=== PATIENT | male | born 1975 | race African-American/Black ===

== ENCOUNTER 2019-12-28 19:13 | Emergency (ER) | payer OTHER, SELFPAY ==
--- NOTE | ~2019-12-28 | XR_ITS ---
XR hand RT min 3V 12/28/2019 19:31 INDICATION: Right hand pain PROCEDURE: 3 views right hand COMPARISON: No prior studies for comparison. FINDINGS: Fracture, dislocation or subluxation is not identified. The soft tissues appear within norm al limits. No foreign bodies are identified. IMPRESSION: 1: NO ACUTE BONE OR JOINT ABNORMALITY IDENTIFIED. Reviewed, dictated and finalized at location A.
[2019-12-28 19:18] VITALS: BP 122/65; PULSE 71; RESP 18; TEMP 36.8; O2SAT 98
--- NOTE | 2019-12-28 20:11 | ED.GENADULT ---
HPI - General Adult General Chief complaint: Extremity Injury, Upper Stated complaint: rt hand inury Time Seen by Provider: 12/28/19 19:19 Source: patient Mode of arrival: ambulatory Limitations: no limitations History of Present Illness HPI narrative: Patient is a 44-year-old male who presents to emergency department for evaluation of right hand pain that began after punching an object 2 weeks ago noting aching pain over the third MCP joint area slight swelling worse with activity and movement denies numbness tingling radicular symptoms or other injuries Related Data Allergies Allergy/AdvReac Type Severity Reaction Status Date / Time No Known Allergies Allergy Unverified 06/06/19 21:44 Review of Systems Review of Systems: All systems reviewed & are unremarkable except as noted in HPI and below PMFSH Social History Social History Gender identity (if verbalized by the patient): Male Exam Narrative: Exam Narrative: GENERAL: Well-appearing, well-nourished, and in no acute distress. HEAD: Normocephalic, atraumatic. EYES: PERRLA and EOMI. ENT: Nares clear, no rhinorrhea or epistaxis. Mucous membranes moist. EXTREMITIES: Normal range of motion. No edema. Tenderness over the dorsal surface of the right hand no deformities noted SKIN: Warm, dry, no rash. NEURO: No focal deficits. Alert and oriented x3. Neurovascularly intact. Capillary refill less than 2 seconds PSYCH: Normal mood and affect. Course Course Emergency Course: Patient in the room in no distress aware of case findings treatment plan and diagnosis agreeing to follow-up as directed Vital Signs Vital signs: Vital Signs Temperature 98.3 F 12/28/19 19:18 Pulse Rate 71 12/28/19 19:18 Respiratory Rate 18 12/28/19 19:18 Blood Pressure 122/65 12/28/19 19:18 Pulse Oximetry 98 12/28/19 19:18 Temperature 98.3 F 12/28/19 19:18 Pulse Rate 71 12/28/19 19:18 Respiratory Rate 18 12/28/19 19:18 Blood Pressure 122/65 12/28/19 19:18 Pulse Oximetry 98 12/28/19 19:18 Medical Decision Making MDM Narrative Medical decision making narrative: Patients injury or pain is consistent with musculoskeletal etiology. No signs of neurological or vascular compromise on exam. Compartments and tisues are soft without signs of compartment syndrome. Pain is felt appropriate for further evaluation on an outpatient basis. Vital Signs Vital Signs: Vital Signs Temperature 98.3 F 12/28/19 19:18 Pulse Rate 71 12/28/19 19:18 Respiratory Rate 18 12/28/19 19:18 Blood Pressure 122/65 12/28/19 19:18 Pulse Oximetry 98 12/28/19 19:18 Temperature 98.3 F 12/28/19 19:18 Pulse Rate 71 12/28/19 19:18 Respiratory Rate 18 12/28/19 19:18 Blood Pressure 122/65 12/28/19 19:18 Pulse Oximetry 98 12/28/19 19:18 Imaging Data Radiologist's impression: ITS Impressions Hand X-Ray 12/28/19 19:34 IMPRESSION: 1: NO ACUTE BONE OR JOINT ABNORMALITY IDENTIFIED. Discharge Plan Discharge Clinical Impression: Hand pain, right Patient Disposition: Home, Self-Care Condition: Stable Instructions: Antibiotic Form, Arthralgia (ED) Additional Instructions: Follow-up with primary care in the next 7 days Return if symptoms worsen or concerns Follow-up/Referrals: UNKNOWN,DOCTOR [Primary Care Provider] -
[2019-12-28 20:33] VITALS: BP 135/97; PULSE 80; RESP 17; TEMP 36.2; O2SAT 100
== END 2019-12-28 20:35 | disposition home or self-care (01) ==
PROVIDERS: Emergency Provider Emergency Medicine
DX: M79.641 Pain in right hand (principal); W22.8XXA Striking against or struck by other objects, initial encounter
CPT/HCPCS: 73130; 99283

== ENCOUNTER 2020-08-07 16:33 | Inpatient (IN) | payer MEDICAID, SELFPAY ==
[2020-08-07] VITALS (20 sets, daily range): BP systolic 70–123; BP diastolic 40–76; PULSE 74–110; RESP 13–18; TEMP 36.3–38.1; O2SAT 95–100; BMI 22.2
--- NOTE | ~2020-08-07 | CT_ITS ---
EXAMINATION: CT abdomen pelvis wo con DATE: 08/07/2020 18:57 INDICATION: Fever and abdominal pain TECHNIQUE: Computed tomography (CT) of the abdomen and pelvis was performed without intravenous contr ast. Automated exposure control and iterative reconstruction technique were employed. The dose-length product was 293.43 mGy-cm. COMPARISON: None FINDINGS: Lung bases are clear. Heart size is normal. No pericardial or pleural effusion. Liver, gallbladder, s pleen and pancreas are normal. Subtle retroperitoneal stranding surrounding the otherwise normal-appe aring bilateral adrenal glands and kidneys. No urolithiasis or hydronephrosis. There is diffuse bladd er wall thickening with mild haziness to the fat in the pelvis surrounding the inferior bladder, pros pierce and seminal vesicles. Fluid throughout the much of the nondilated small bowel and colon consiste nt with diarrhea. No obstruction. Appendix is normal. No abscess, free intraperitoneal gas or ascites . No pathologically enlarged abdominal or pelvic lymphadenopathy. Severe spondylosis at the lumbosacr al junction. IMPRESSION: 1. Prominent diffuse bladder wall thickening with inflammatory changes are bladder, prostate and semi nal vesicles consistent with cystitis. 2. More subtle peritoneal stranding in the upper abdomen surrounding the kidneys and adrenal glands s uggesting associated ascending urinary tract infection and pyelonephritis. Reviewed, dictated and finalized at location H. [employer] IMPRESSION: 1. Prominent diffuse bladder wall thickening with inflammatory changes are blad janet, prostate and seminal vesicles consistent with cystitis. 2. More subtle peritoneal stranding in the upper abdomen surrounding the kidney s and adrenal glands suggesting associated ascending urinary tract infection an d pyelonephritis.
[2020-08-07] MEDS: PROCHLORPERAZINE EDISYLATE 10 MG/2 ML VIAL IV PUSH (17:41)
[2020-08-07] MEDS: LACTATED RINGERS 1,000 ML 999 ML IV CONT ×3 (17:41→18:46)
[2020-08-07] MEDS: NALOXONE HCL 0.4 MG/ML VIAL IV PUSH (17:41)
[2020-08-07 17:54] LABS: Hematocrit 46.5 % (42.0-52.0); Hemoglobin 16.1 g/dL (14.0-18.0); Mean Corpuscular HGB Conc 34.6 g/dl (32-36); Mean Corpuscular Hemoglobin 28.5 pg (26-34); Mean Corpuscular Volume 82.4 fl (80-100); Mean Platelet Volume 9.7 fl (7.4-10.4); Platelet Count Result 221 k/mm3 (150-375); Red Blood Count 5.64 M/mm3 (4.6-6.20); Red Cell Distribution Width 14.1 % (11.5-14.5); White Blood Count 21.4 K/mm3 (4.5-10.0)
[2020-08-07 18:10] LABS: Alanine Aminotransferase 18 U/L (4-50); Albumin Level 4.3 g/dL (3.5-5.1); Alkaline Phosphatase 122 U/L (38-126); Anion Gap 11 mmol/L (8-16); Aspartate Amino Transferase 28 U/L (17-59); Bilirubin,Total 1.1 mg/dL (0.2-1.3); Blood Urea Nitrogen 15 mg/dL (9-20); Calcium 9.6 mg/dL (8.4-10.2); Carbon Dioxide 24 mmol/L (22-30); Chloride 100 mmol/L (98-107); Estimated CRCL calculation 49 ml/min; Estimated Glomerular Filt Rate 47; Glucose 103 mg/dL (75-110); Lactic Acid Reflex 1.9 mmol/L (0.7-2.1); Potassium 3.1 mmol/L (3.4-5.0); Sodium 135 mmol/L (137-145)
[2020-08-07 18:22] LABS: Band Neutrophils Percent 21 % (0-6); Lymphocytes Absolute Manual 0.64 K/mm3 (1.1-4.5); Monocytes Absolute Manual 0.21 K/mm3 (0.1-0.90); Monocytes Percent Manual 1 % (3-9); Neutrophils Absolute Manual 20.54 K/mm3 (1.3-6.7); Neutrophils Percent Manual 75 % (46-73); Platelet Estimate Adequate (Adequate); Total Cells Counted 100
--- NOTE | 2020-08-07 18:28 | ED.ABDPAIN ---
HPI - Abdominal Pain General Chief Complaint: Abdominal Pain Stated Complaint: fever, diarrhea Time Seen by Provider: 08/07/20 17:09 Source: family Mode of arrival: ambulatory Limitations: clinical condition and other History of Present Illness HPI narrative: 45-year-old male History is provided by significant other She says that he started getting sick yesterday with fatigue and a low-grade fever Subsequently had diarrhea 3 times and complained of blood in his urine It is very hard to get any information out of the patient, he does not complain that his abdomen or back hurts, does not seem to be short of breath, mainly would like a glass of water and to go to sleep Related Data Home Medications Medication Instructions Recorded Confirmed No Home Medications 08/07/20 08/07/20 Allergies Allergy/AdvReac Type Severity Reaction Status Date / Time No Known Allergies Allergy Verified 08/07/20 17:19 [facility] Social History Social History Gender identity (if verbalized by the patient): Male Exam Const: General: healthy appearing, well developed and awake Nutritional Appearance: well nourished Limitations: other limitations Other: lethargic vs uncooperative HENMT: Head: normocephalic and atraumatic Ears: external ears normal General nose exam: No nasal discharge present and no epistaxis Face and sinus: face symmetric Mouth: Yes moist mucous membranes Eyes: Conjunctivae: conjunctivae normal Sclera: sclerae normal EOM: EOMs intact bilaterally Neck: Neck: normal visual inspection, no meningeal signs, supple and no JVD Chest: Chest palpation & inspection: deferred Resp: Effort & Inspection: normal respiratory effort Auscultation: clear to auscultation bilaterally, no rales, no rhonchi, no wheezes and other (BS =) Cardio: Rate: regular rate Rhythm: regular rhythm Heart sounds: no gallops and no murmurs GI: Inspection: normal to inspection GI Palp: Yes Soft to palpation, No Guarding due to palpation present (GI) and No Rebound tenderness present : General: Yes CVA tenderness Other: seems to be, though says he's not Back/Spine/Pelvis: Back: CVA tenderness Thoracic/Lumbar Spine: thoracic and lumbar spine normal to inspection Skin: General skin exam: normal color and no rashes or lesions noted Neuro: General: moves all extremities and no focal motor deficits Cranial nerves: Yes facial symmetry Speech: normal speech Extrem: General: normal to inspection, full ROM and no pedal edema Psych: Affect: normal affect Course Vital Signs Vital signs: Vital Signs Temperature 37.0 C 08/07/20 17:02 Pulse Rate 110 H 08/07/20 17:02 Respiratory Rate 16 08/07/20 17:02 Blood Pressure 70/40 L 08/07/20 17:02 Pulse Oximetry 96 08/07/20 17:02 Temperature 37.7 C H 08/07/20 19:41 Pulse Rate 89 08/07/20 19:41 Respiratory Rate 15 08/07/20 19:41 Blood Pressure 121/72 08/07/20 20:16 Pulse Oximetry 96 08/07/20 19:46 MDM - Abdominal Pain MDM Narrative Medical decision making narrative: responded to 3rd l of lr infusion w/ normalization of bp and never required bridging with levo Lab Data Result diagrams: 08/07/20 17:46 08/07/20 17:46 Labs: Lab Results 08/07/20 08/07/20 08/07/20 Range/Units 17:46 17:46 17:46 WBC 21.4 H (4.5-10.0) K/mm3 RBC 5.64 (4.6-6.20) M/mm3 Hgb 16.1 (14.0-18.0) g/dL Hct 46.5 (42.0-52.0) % MCV 82.4 (80-100) fl MCH 28.5 (26-34) pg MCHC 34.6 (32-36) g/dl RDW 14.1 (11.5-14.5) % Plt Count 221 (150-375) k/mm3 MPV 9.7 (7.4-10.4) fl Immature Gran % (Auto) Not Reportable Neut % (Auto) Not Reportable Lymph % (Auto) Not Reportable [place] % (Auto) Not Reportable Eos % (Auto) Not Reportable Baso % (Auto) Not Reportable Lymph # (Auto) Not Reportable [place] # (Auto) Not Reportable Eos
[2020-08-07 20:19] LABS: Add Urine Microscopic? YES; Appearance Urine Cloudy (Clear); Bacteria Urine Trace /hpf; Bilirubin Urine Negative (Negative); Blood Urine 3+ (Negative); Color Urine Yellow (Yellow); Glucose Urine UA Negative (Negative); Ketones Urine 1+ mg/dL (Negative); Leukocyte Esterase Ur 2+ LEU/UL (Negative); Mucus Urine Few /lpf; Nitrate Urine Negative (Negative); Protein Urine 2+ mg/dL (Negative); RBC Urine 51-75 /hpf (0-2); Squamous Epithelial Cell Urine Occasional /hpf (Few); Urobilinogen Urine Negative mg/dL (<2.0); WBC Urine 31-50 /hpf
--- NOTE | 2020-08-07 20:37 | PC.NURSE ---
Temperature was 97.7 at 20:37
[2020-08-07] MEDS: LACTATED RINGERS 1,000 ML 150 ML IV CONT (20:59)
[2020-08-07] MEDS: KCL 20 MEQ/SW 100 ML 100 ML 50 MEQ IVPB (21:23)
--- NOTE | 2020-08-07 21:55 | PM.IMHP ---
H&P: HPI History of Present Illness Date/Time: 08/07/20 21:55 Chief complaint: pyelonephritis Narrative: This is an 45 year old male who is previously known to be healthy and who presented to the hospital with a complaint of gross hematuria, fever, and generalized weakness since yesterday. He denies any nausea or vomiting but does report multiple episodes of diarrhea. Associated symptoms include dysuria. He has been mostly sleeping since yesterday. The patient was found to be hypotensive on arrival to the ER and was started on IV bolus of RL. ER provider ordered Levophed which was never started because the patient's blood pressure improved with IV fluids. Urinalysis was grossly abnormal today. CT abd/pelvis demonstrated prominent diffuse bladder wall thickening with inflammatory changes are bladder, prostate and seminal vesicles as well as subtle peritoneal stranding in the upper abdomen surrounding the kidneys and adrenal glands. He was treated with ceftriaxone and Narcan? in the ER. We have been asked to admit him to the hospital for further care. No other complaints. Review of Systems Review of Systems: All systems reviewed & are unremarkable except as noted in HPI and below PMFSH Family History Family History Mother Hypertension Colon cancer Social History Social History Smoking status: Current every day smoker Tobacco type: cigars Additional smoking assessment comments: 3 CIGARS A DAY Alcohol intake: current Drinks per week: 3 Substance use: current Substance use type: marijuana Gender identity (if verbalized by the patient): Male Spiritual care concerns: No Comments The patient denies any past medical or surgical history. Meds Home Medications and Allergies Home Medications Medication Instructions Recorded Confirmed Type No Home Medications 08/07/20 08/07/20 History Allergies Allergy/AdvReac Type Severity Reaction Status Date / Time No Known Allergies Allergy Verified 08/07/20 22:51 Vital Signs Vital Signs - 24 hr 08/07/20 17:02 08/07/20 17:37 08/07/20 18:15 Temperature 37.0 C 38.1 C H Pulse Rate 110 H 96 84 Respiratory Rate 16 18 14 Blood Pressure 70/40 L 96/53 L 82/48 L Pulse Oximetry 96 98 98 08/07/20 18:46 08/07/20 19:15 08/07/20 19:24 Temperature Pulse Rate 88 91 92 Respiratory Rate 18 14 17 Blood Pressure 92/44 L 106/76 Pulse Oximetry 98 98 100 08/07/20 19:30 08/07/20 19:31 08/07/20 19:41 Temperature 37.7 C H Pulse Rate 89 Respiratory Rate 15 Blood Pressure 119/71 119/71 Pulse Oximetry 98 97 98 08/07/20 19:45 08/07/20 19:46 08/07/20 20:01 Temperature Pulse Rate Respiratory Rate Blood Pressure 116/67 108/66 Pulse Oximetry 96 96 08/07/20 20:16 08/07/20 20:31 08/07/20 20:46 Temperature Pulse Rate Respiratory Rate Blood Pressure 121/72 118/63 109/75 Pulse Oximetry 08/07/20 21:01 08/07/20 21:16 08/07/20 21:26 Temperature 37.4 C 37.7 C H Pulse Rate 90 77 Respiratory Rate 15 Blood Pressure 117/74 95/64 L Pulse Oximetry 96 99 Exam Const: General: ill appearing, tired appearing and other (arousable++ Diaphoretc++ Febrile to touch++ ) Nutritional Appearance: well nourished Orientation/consciousness: patient oriented x3 HENMT: Head: normal to inspection General nose exam: Normal external nose present Face and sinus: normal facial exam Mouth: Yes Normal oral and palatal mucosa present and Yes oropharynx normal Eyes: Pupils: Equal, round and reactive pupils present EOM: EOMs intact bilaterally Neck: Neck: supple and no JVD Thyroid: thyroid normal Lymphatic: lymphadenopathy not noted Resp: Effort & Inspection: normal respiratory effort Auscultation: clear to auscultation bilaterally Cardio: Rate: regular rate Rhythm: regular rhythm Heart sounds: no murmurs
--- NOTE | 2020-08-07 23:42 | ADMGEN ---
This patient, Claude Gracia, was admitted to Medical Room 240-. Patient/family oriented to hospital policies and general routines including ID bracelet, bed and alarms, visiting hours, pain management, procedures, bathroom and other care routines, personal items, smoking policy, room service/diet, and visiting hours. Information on how to activate the Rapid Response Team has been discussed. Patient/Family are encouraged to report perceived risks to care and to ask questions if they do not understand what they are told or what they should do.
[2020-08-08] MEDS: LACTATED RINGERS 1,000 ML 200 ML IV CONT ×5 (02:11→23:11)
[2020-08-08 05:32] LABS: Basophils Absolute Auto 0.1 K/mm3 (0.0-0.1); Basophils Percent Auto 0.3 % (0.2-1.2); Eosinophils Absolute Auto 0.1 K/mm3 (0-0.3); Eosinophils Percent Auto 0.2 % (0-4.4); Immature Granulocyte Absolute 0.55 K/mm3 (0.00-0.031); Immature Granulocyte Percent A 1.5 % (0-0.5); Lymphocytes Absolute Auto 2.18 K/mm3 (0.9-3.2); Mean Corpuscular HGB Conc 34.1 g/dl (32-36); Mean Corpuscular Hemoglobin 28.5 pg (26-34); Mean Corpuscular Volume 83.3 fl (80-100); Mean Platelet Volume 10.5 fl (7.4-10.4); Monocytes Absolute Auto 2.5 K/mm3 (0.1-0.6); Monocytes Percent Auto 6.9 % (2.6-8.5); Neutrophils Absolute Auto 31.1 K/mm3 (1.3-6.7); Neutrophils Percent Auto 85.1 % (45.5-73.1); Platelet Count Result 218 k/mm3 (150-375); Red Blood Count 4.92 M/mm3 (4.6-6.20); White Blood Count 36.5 K/mm3 (4.5-10.0)
[2020-08-08 05:45] LABS: Anion Gap 5 mmol/L (8-16); Blood Urea Nitrogen 14 mg/dL (9-20); Calcium 8.6 mg/dL (8.4-10.2); Carbon Dioxide 30 mmol/L (22-30); Chloride 104 mmol/L (98-107); Estimated CRCL calculation 86 ml/min; Estimated Glomerular Filt Rate > 60; Glucose 101 mg/dL (75-110); Magnesium 1.9 mg/dL (1.6-2.3); Potassium 3.5 mmol/L (3.4-5.0); Sodium 139 mmol/L (137-145)
[2020-08-08 05:55] VITALS: BP 97/51; PULSE 65; RESP 16; TEMP 36.4; O2SAT 100
--- NOTE | 2020-08-08 08:27 | PM.IMPN ---
Progress Note: A&P Assessment and Plan (1) Pyelonephritis: Code(s): N12 - Tubulo-interstitial nephritis, not specified as acute or chronic Status: Acute Assessment and Plan: UA suspicious for UTI, with CT imaging suggestive of cystitis and evidence of likely pyelonephritis. Patient states he feels better today. WBC increased to 36.5k today Continue current treatment with IV rocephin for now; tailor abx to cultures Tylenol PRN for fevers Continue IV fluids Monitor closely Await UCx, BCx (2) Sepsis: Qualifiers: Acute renal failure type: unspecified Sepsis acute organ dysfunction status: with acute organ dysfunction Sepsis type: sepsis due to unspecified organism Severe sepsis acute organ dysfunction type: acute renal failure Severe sepsis shock status: without septic shock Qualified Code(s): A41.9 - Sepsis, unspecified organism; R65.20 - Severe sepsis without septic shock; N17.9 - Acute kidney failure, unspecified Code(s): A41.9 - Sepsis, unspecified organism Status: Acute Assessment and Plan: Patient had leukocytosis, tachycardia, tmax of 100.6, BP 70/40 upon arrival; suspected source is as above. Lactic Acid normal. VS improved with IV fluids although BP a bit soft this morning. Continue treatment for Pyelonephritis as above Continue IV fluids for now, consider decreasing rate if tolerating PO and improvement in BP Monitor closely (3) Acute kidney injury: Code(s): N17.9 - Acute kidney failure, unspecified Status: Acute Assessment and Plan: Cr on arrival 1.90 with significant improvement to 1.00 this morning with IV fluids. Likely due to dehydration/hypovolemia; prerenal Continue IV fluids Avoid nephrotoxic agents; renally dose Monitor renal function tomorrow (4) Leukocytosis: Qualifiers: Leukocytosis type: unspecified Qualified Code(s): D72.829 - Elevated white blood cell count, unspecified Code(s): D72.829 - Elevated white blood cell count, unspecified Status: Acute Assessment and Plan: WBC increased to 36.5k, although patient appears to have clinically improved overnight. Afebrile since arrival. Likely due to pyelonephritis Continue treatment for pyelonephritis Await BCx and Ucx Monitor CBC tomorrow (5) Hypokalemia: Code(s): E87.6 - Hypokalemia Status: Acute Assessment and Plan: K improved to 3.5 after this was replaced. Likely due to poor PO intake Monitor closely replace as needed Subjective Date/time seen: 08/08/20 08:27 Interval history: Patient is a 45 yo M who is previously known to be healthy who is seen in follow up for KEESHA, pyelonephritis and sepsis likely due to same. Patient states he feels better today, but still tired. Noted some bloody urine yesterday, but has yet to urinate today. Had subjective fevers/chills overnight, but feeling better today. No other complaints. Denies headaches, dizziness, lightheadedness, changes in v/h, cp/palpitations, sob/cough, n/v/d/c, abd pain, changes in BMs, dysuria, hematuria, cloudy urine, calf pain/swelling. Review of Systems Review of Systems: All systems reviewed & are unremarkable except as noted in HPI and below Exam Narrative: Exam Narrative: General: Patient resting supine in bed in no acute distress. Tired and acutely ill appearing HEENT: Normocephalic, EOMI, oral mucosa a bit dry. Cardiovascular: Rate and rhythm are regular. No notable murmur, rub, or gallop. Respiratory: Lungs clear to auscultation all pearce. Non-labored breathing. Back: slight CVA tenderness on left Abdomen: Soft, non-tender, non-distended, bowel sounds present. No palpable mass or organomegaly noted Extremities: Peripheral pulses intact. No edema. NTTP b/l calve
[2020-08-08 10:10] VITALS: O2SAT 95
[2020-08-08 12:31] LABS: Amphetamine Screen Urine Negative (Negative); Barbiturate Screen Urine Negative (Negative); Benzodiazepines Screen Urine Negative (Negative); Cannabinoid Screen Urine Positive (Negative); Cocaine Screen Urine Negative (Negative); Methadone Screen Urine Negative (Negative); Opiate Screen Urine Negative (Negative); Phencyclidine Screen Urine Negative (Negative)
[2020-08-08 14:00] VITALS: BP 122/71; PULSE 76; RESP 16; TEMP 36.5; O2SAT 99
[2020-08-08 20:55] VITALS: BP 102/55; PULSE 72; RESP 16; TEMP 36.6; O2SAT 99
[2020-08-09] MEDS: LACTATED RINGERS 1,000 ML 200 ML IV CONT (04:16)
[2020-08-09 05:23] LABS: Basophils Absolute Auto 0.1 K/mm3 (0.0-0.1); Basophils Percent Auto 0.3 % (0.2-1.2); Eosinophils Absolute Auto 0.2 K/mm3 (0-0.3); Eosinophils Percent Auto 1.3 % (0-4.4); Hematocrit 37.6 % (42.0-52.0); Hemoglobin 12.8 g/dL (14.0-18.0); Immature Granulocyte Absolute 0.09 K/mm3 (0.00-0.031); Immature Granulocyte Percent A 0.5 % (0-0.5); Lymphocytes Absolute Auto 1.21 K/mm3 (0.9-3.2); Lymphocytes Percent Auto 7.3 % (18.3-44.2); Mean Corpuscular Hemoglobin 28.3 pg (26-34); Mean Corpuscular Volume 83.2 fl (80-100); Mean Platelet Volume 10.8 fl (7.4-10.4); Monocytes Absolute Auto 1.4 K/mm3 (0.1-0.6); Monocytes Percent Auto 8.7 % (2.6-8.5); Neutrophils Absolute Auto 13.5 K/mm3 (1.3-6.7); Neutrophils Percent Auto 81.9 % (45.5-73.1); Platelet Count Result 212 k/mm3 (150-375); Red Blood Count 4.52 M/mm3 (4.6-6.20); Red Cell Distribution Width 14.1 % (11.5-14.5); White Blood Count 16.5 K/mm3 (4.5-10.0)
[2020-08-09 05:40] LABS: Alanine Aminotransferase 14 U/L (4-50); Albumin Level 3.2 g/dL (3.5-5.1); Alkaline Phosphatase 54 U/L (38-126); Anion Gap 6 mmol/L (8-16); Aspartate Amino Transferase 25 U/L (17-59); Bilirubin,Total 0.3 mg/dL (0.2-1.3); Blood Urea Nitrogen 11 mg/dL (9-20); Calcium 8.5 mg/dL (8.4-10.2); Carbon Dioxide 28 mmol/L (22-30); Chloride 106 mmol/L (98-107); Estimated CRCL calculation 106 ml/min; Estimated Glomerular Filt Rate > 60; Glucose 82 mg/dL (75-110); Magnesium 1.9 mg/dL (1.6-2.3); Potassium 3.3 mmol/L (3.4-5.0); Sodium 140 mmol/L (137-145)
[2020-08-09 05:43] VITALS: BP 110/71; PULSE 68; RESP 16; TEMP 36.7; O2SAT 98
[2020-08-09] MEDS: POTASSIUM CHLORIDE 20 MEQ TABLET 40 MEQ PO (08:03)
--- NOTE | 2020-08-09 08:39 | PM.IMPN ---
Progress Note: A&P Assessment and Plan (1) Septicemia: Code(s): A41.9 - Sepsis, unspecified organism Status: Acute Assessment and Plan: BCx growing gram negative bacilli x 2, preliminary. UCx pending. Likely source. Patient had leukocytosis, tachycardia, tmax of 100.6, BP 70/40 upon arrival; VS now stable, afebrile, and leukocytosis improving. Lactic Acid normal. BP still a bit soft Continue treatment with IV Rocephin Continue IV fluids, decrease to 75 mL/hr. Consider discontinuing if tolerating PO and improvement in BP Await finalized BCx/UCx; tailor antibiotics to cultures Anticipate continuing IV antibiotics for at least 2-3 more days, then switch to PO pending clinical course. Likely do 10 days total of antibiotics Monitor closely (2) Pyelonephritis: Code(s): N12 - Tubulo-interstitial nephritis, not specified as acute or chronic Status: Acute Assessment and Plan: UA suspicious for UTI, UCx pending; BCx positive for gram negatice bacilli x 2. CT imaging suggestive of cystitis and evidence of likely pyelonephritis. Patient showing clinical improvement. WBC 16.5k today Continue current treatment with IV rocephin for now; tailor abx to cultures Tylenol PRN for fevers Continue IV fluids Monitor closely Await final UCx, BCx (3) Acute kidney injury: Code(s): N17.9 - Acute kidney failure, unspecified Status: Resolved Assessment and Plan: Cr on arrival 1.90 with significant improvement to 0.80 this morning with IV fluids. Likely due to dehydration/hypovolemia; prerenal Continue IV fluids Avoid nephrotoxic agents; renally dose Monitor renal function tomorrow (4) Hypokalemia: Code(s): E87.6 - Hypokalemia Status: Acute Assessment and Plan: K 3.3 today; replaced. Monitor closely replace as needed Subjective Date/time seen: 08/09/20 08:39 Interval history: Patient is a 45 yo M who is previously known to be healthy who is seen in follow up for KEESHA, pyelonephritis and sepsis likely due to same. Patient states he feels better again today. His subjective f/c have subsided. He notes improved urine output and hematuria has resolved; still reporting dysuria. No other complaints. Denies headaches, dizziness, lightheadedness, changes in v/h, cp/palpitations, sob/cough, n/v/d/c, abd pain, changes in BMs, calf pain/swelling. Review of Systems Review of Systems: All systems reviewed & are unremarkable except as noted in HPI and below Exam Narrative: Exam Narrative: General: Patient resting supine in bed in no acute distress. HEENT: Normocephalic, EOMI, oral mucosa moist Cardiovascular: Rate and rhythm are regular. No notable murmur, rub, or gallop. Respiratory: Lungs clear to auscultation all pearce. Non-labored breathing. Abdomen: Soft, non-tender, non-distended, bowel sounds present. Extremities: Peripheral pulses intact. No edema. NTTP b/l calves Neuro: No focal neurological deficits. Speech is clear. Objective Data Vital Signs Vital Signs: Last Vital Signs Temp 98.0 F 08/09/20 05:43 Pulse 68 08/09/20 05:43 Resp 16 08/09/20 05:43 BP 110/71 08/09/20 05:43 Pulse Ox 98 08/09/20 05:43 Intake/Output Intake/Output: Intake & Output 08/06/20 08/07/20 08/08/20 08/09/20 23:59 23:59 23:59 23:59 Intake Total 3050 5040 1300 Output Total 1000 975 Balance 3050 4040 325 Meds/Results Medications: Active Medications Generic Name Dose Route Start Last Admin Trade Name Freq PRN Reason Stop Dose Admin Acetaminophen 650 mg 08/07/20 20:50 Acetaminophen 325 Mg Tablet PO Q4H PRN Mild Pain (1-3) or Fever Lactated Ringer's 1,000 mls @ 75 mls/hr 08/07/20 20:50 08/09/20 08:05 Lr - Lactated Ringers Iv IV CONT 75 mls/hr .[id number]
[2020-08-09] MEDS: LACTATED RINGERS 1,000 ML 75 ML IV CONT ×2 (11:15→23:50)
[2020-08-09 14:00] VITALS: BP 131/86; PULSE 60; RESP 16; TEMP 36.8; O2SAT 98
[2020-08-09 21:59] VITALS: BP 130/78; PULSE 68; RESP 21; TEMP 36.8; O2SAT 100
[2020-08-10 05:56] LABS: Basophils Percent Auto 0.4 % (0.2-1.2); Eosinophils Absolute Auto 0.2 K/mm3 (0-0.3); Hemoglobin 12.9 g/dL (14.0-18.0); Immature Granulocyte Absolute 0.03 K/mm3 (0.00-0.031); Immature Granulocyte Percent A 0.3 % (0-0.5); Lymphocytes Absolute Auto 1.75 K/mm3 (0.9-3.2); Lymphocytes Percent Auto 18.6 % (18.3-44.2); Mean Corpuscular HGB Conc 34.9 g/dl (32-36); Mean Corpuscular Hemoglobin 28.2 pg (26-34); Mean Corpuscular Volume 80.8 fl (80-100); Mean Platelet Volume 11.1 fl (7.4-10.4); Monocytes Absolute Auto 1.2 K/mm3 (0.1-0.6); Monocytes Percent Auto 13.1 % (2.6-8.5); Neutrophils Absolute Auto 6.2 K/mm3 (1.3-6.7); Neutrophils Percent Auto 65.6 % (45.5-73.1); Platelet Count Result 245 k/mm3 (150-375); Red Blood Count 4.58 M/mm3 (4.6-6.20); Red Cell Distribution Width 13.5 % (11.5-14.5); White Blood Count 9.4 K/mm3 (4.5-10.0)
[2020-08-10 06:00] VITALS: BP 118/69; PULSE 56; RESP 21; TEMP 36.4; O2SAT 100
[2020-08-10 06:13] LABS: Anion Gap 5 mmol/L (8-16); Blood Urea Nitrogen 11 mg/dL (9-20); Calcium 8.6 mg/dL (8.4-10.2); Carbon Dioxide 29 mmol/L (22-30); Chloride 105 mmol/L (98-107); Estimated CRCL calculation 106 ml/min; Estimated Glomerular Filt Rate > 60; Glucose 88 mg/dL (75-110); Magnesium 1.9 mg/dL (1.6-2.3); Potassium 3.5 mmol/L (3.4-5.0); Sodium 139 mmol/L (137-145)
--- NOTE | 2020-08-10 08:40 | PM.DS ---
DS: Admitting Diagnosis Admitting Diagnosis Admitting Diagnosis: pyelonephritis DS: Discharge Diagnosis Discharge Diagnosis (1) Septicemia: Code(s): A41.9 - Sepsis, unspecified organism Status: Acute Assessment and Plan: BCx growing E. coli sensitive to Rocephin. UCx pending still; concerned inadequate specimen, although will treat E. coli bacteremia. Likely source. Patient had leukocytosis, tachycardia, tmax of 100.6, BP 70/40 upon arrival; VS now stable, afebrile since 08/07, and leukocytosis resolved. Lactic Acid normal. BP improved Continue treatment with IV Rocephin through today (day 4) Discharge home with Cefdinir to complete 10 days total (through 08/16) F/u with PCP once established Will do repeat UA after antibiotics (2) Pyelonephritis: Code(s): N12 - Tubulo-interstitial nephritis, not specified as acute or chronic Status: Acute Assessment and Plan: UA suspicious for UTI, UCx pending; see above. BCx growing E. coli sensitive Rocephin. CT imaging suggestive of cystitis and evidence of likely pyelonephritis. Patient showing clinical improvement. WBC WNL today. Afebrile >48 hours Continue current treatment with IV rocephin through today (day 4) Discharge home on Cefdinir as above Tylenol PRN for fevers F/u with PCP and UA as above (3) Acute kidney injury: Code(s): N17.9 - Acute kidney failure, unspecified Status: Resolved Assessment and Plan: Cr on arrival 1.90 with significant improvement to 0.80 this morning. Likely due to dehydration/hypovolemia; prerenal F/u with PCP (4) Hypokalemia: Code(s): E87.6 - Hypokalemia Status: Resolved Assessment and Plan: K 3.5 today F/u with PCP DS: Summary Hospital Course Reason for hospitalization: E. coli septicemia; pyelonephritis Hospital Course: Patient is a 45 yo M who is previously known to be healthy and who presented to the hospital on 08/07 with a complaint of gross hematuria, fever, and generalized weakness since 08/06. While in the ED, CT abd/pelvis had findings suggestive of cystitis and pyelonephritis; he was also found to be hypotensive on arrival with BP of 70/40, Leukocytosis of 21.4k, tmax of 100.6, tachycardia, and as suspected source with UA as grossly abnormal, meeting criteria for sepsis. BCx and UCx obtained in the ED and he was given IV Rocephin and copious IV fluids with improvement in his blood pressure. Cr was found to be elevated at 1.90. Lactic Acid was found to be normal. Patient admitted under this setting. Please see H&P for further details. Patient was admitted to the hospitalist service for further evaluation. Patient continued on IV Rocephin throughout his stay (completed 4 days IV antibiotics). He continued with IV fluids during his stay with significant improvement in his blood pressure and resolution of his KEESHA. He was found to have E. coli sensitive to Rocephin growing in both blood cultures. UCx, unfortunately, was pending by day of discharge, and there is a concern that the specimen was inadequate, but given his clinical improvement and high likelihood septicemia was source, plan was for him to continue treatment with cefdinir through 08/16 to complete 10 days total of antibiotics. Plan was for him to follow up with PCP in 2 weeks once established and to obtain a UA after discharge. His vital signs were stable after admission and he remained afebrile since 08/07. Patient agreeable and comfortable with plan for discharge. Patient hemodynamically stable and in improved condition for discharge on 08/10 Status at Discharge Overall status at discharge: patient is progressing back to baseline Time Spent with Patient Time attestation: Total time spent providing and/or coordinating disc
--- NOTE | 2020-08-10 12:58 | PC.NURSE ---
Patient's family called asking about his pharmacy discount card and stating he left it at the hospital. Went to room. Found pharmacy discount card, list of PCPs and [facility] in room. medical review coordinator Alma spoke with family and offered suggestions for pharmacy savings.
== END 2020-08-10 12:15 | disposition home or self-care (01) | DRG 720 ==
LOC: ANHED 20:55 → ANH2MED 23:13
PROVIDERS: Admitting Provider Family Medicine; Emergency Provider Emergency Medicine; Visit Provider Physician Assistant
DX: A41.51 Sepsis due to Escherichia coli [E. coli] (principal); N10 Acute pyelonephritis; N17.9 Acute kidney failure, unspecified; F17.290 Nicotine dependence, other tobacco product, uncomplicated; F12.90 Cannabis use, unspecified, uncomplicated; R65.20 Severe sepsis without septic shock; E87.6 Hypokalemia; N30.91 Cystitis, unspecified with hematuria
CPT/HCPCS: 36415; 74176; 80048; 80053; 80307; 81001; 83605; 83735; 85025; 87040; 87077; 87086; 87186; 96361; 96365; 96375; 99285; A9270; J0696; J0780; J2310; J3480; J7120

== ENCOUNTER 2020-09-16 20:39 | Emergency (ER) | payer OTHER, MEDICAID, SELFPAY ==
[2020-09-16] VITALS (11 sets, daily range): BP systolic 110–123; BP diastolic 61–73; PULSE 74–85; RESP 10–18; TEMP 36.3–36.5; O2SAT 97–100
[2020-09-16 21:20] LABS: Add Urine Microscopic? YES; Appearance Urine Clear (Clear); Bilirubin Urine Negative (Negative); Blood Urine Negative (Negative); Color Urine Yellow (Yellow); Glucose Urine UA Negative (Negative); Ketones Urine Trace mg/dL (Negative); Leukocyte Esterase Ur Trace LEU/UL (Negative); Mucus Urine Heavy /lpf; Nitrate Urine Negative (Negative); Protein Urine 1+ mg/dL (Negative); Squamous Epithelial Cell Urine Few /hpf (Few)
--- NOTE | 2020-09-16 21:21 | ED.GENADULT ---
HPI - General Adult General Chief complaint: Urogenital-Male Stated complaint: UTI Time Seen by Provider: 09/16/20 20:54 Source: patient History of Present Illness HPI narrative: Patient is a 45 y/o male complaining discomfort with urination starting 2 days ago. He rates his discomfort as 5/10. He describes the feeling as burning and warmth. He states that urination worsens his discomfort. He also noticed blood in urine a few days ago. Related Data Allergies Allergy/AdvReac Type Severity Reaction Status Date / Time No Known Allergies Allergy Verified 09/16/20 20:51 Review of Systems Constitutional: Constitutional: Denies chills, Denies fever(s), Denies headache(s) and Denies weakness Eyes: Eyes: Denies blurry vision ENT: Denies headache(s) and Denies neck pain Cardiovascular: Cardiovascular: Denies chest pain and Denies dyspnea Respiratory: Respiratory: Denies cough and Denies dyspnea Gastrointestinal: Gastrointestinal: Denies abdominal pain, Denies diarrhea, Denies nausea and Denies vomiting Genitourinary: Genitourinary: Reports hematuria and Reports dysuria Musculoskeletal: Musculoskeletal: Denies back pain and Denies neck pain Neurologic: Denies headache(s) and Denies weakness PMFSH Family History Family History Mother Hypertension Colon cancer Social History Social History Smoking status: Current every day smoker Tobacco type: cigars Additional smoking assessment comments: 3 CIGARS A DAY Alcohol intake: current Drinks per week: 3 Substance use: current Substance use type: marijuana Gender identity (if verbalized by the patient): Male Spiritual care concerns: No Exam Const: General: no acute distress and well developed Orientation/consciousness: oriented to person, oriented to place, oriented to time and patient oriented x3 HENMT: Head: normocephalic Ears: external ears normal General nose exam: Normal external nose present Eyes: General: appearance normal, both eyes and all related structures Conjunctivae: conjunctivae normal Neck: Neck: normal visual inspection and full ROM Chest: Chest palpation & inspection: normal inspection of the chest and no tenderness Resp: Effort & Inspection: normal respiratory effort Auscultation: clear to auscultation bilaterally Cardio: Rate: regular rate Rhythm: regular rhythm GI: GI Palp: No abdominal tenderness and Yes Soft to palpation Skin: General skin exam: normal color and turgor normal Neuro: General: oriented to person, oriented to place, oriented to time and patient oriented x3 Cognition (Neuro): normal cognition Extrem: General: normal to inspection, full ROM and no pedal edema Psych: Appearance: grossly normal Mental Status: mental status grossly normal Affect: normal affect Course Vital Signs Vital signs: Vital Signs Temperature 36.3 C L 09/16/20 20:46 Pulse Rate 85 09/16/20 20:46 Respiratory Rate 18 09/16/20 20:46 Blood Pressure 123/73 09/16/20 20:46 Pulse Oximetry 98 09/16/20 20:46 Temperature 36.5 C 09/16/20 22:54 Pulse Rate 76 09/16/20 22:54 Respiratory Rate 14 09/16/20 22:54 Blood Pressure 120/71 09/16/20 22:54 Pulse Oximetry 100 09/16/20 22:54 Medical Decision Making Vital Signs Vital Signs: Vital Signs Temperature 36.3 C L 09/16/20 20:46 Pulse Rate 85 09/16/20 20:46 Respiratory Rate 18 09/16/20 20:46 Blood Pressure 123/73 09/16/20 20:46 Pulse Oximetry 98 09/16/20 20:46 Temperature 36.5 C 09/16/20 22:54 Pulse Rate 76 09/16/20 22:54 Respiratory Rate 14 09/16/20 22:54 Blood Pressure 120/71 09/16/20 22:54 Pulse Oximetry 100 09/16/20 22:54 Lab Data Result diagrams: 09/16/20 21:21 09/16/20 21:21 Labs: Lab Results 09/16/20 09/16/20 09/16/20 Range/Units 20:55 21:08 21:21 WBC 12.7 H
[2020-09-16 21:26] LABS: Basophils Absolute Auto 0.1 K/mm3 (0.0-0.1); Basophils Percent Auto 0.4 % (0.2-1.2); Eosinophils Absolute Auto 0.3 K/mm3 (0-0.3); Eosinophils Percent Auto 2.2 % (0-4.4); Hematocrit 39.2 % (42.0-52.0); Hemoglobin 13.4 g/dL (14.0-18.0); Immature Granulocyte Absolute 0.04 K/mm3 (0.00-0.031); Immature Granulocyte Percent A 0.3 % (0-0.5); Lymphocytes Absolute Auto 3.66 K/mm3 (0.9-3.2); Lymphocytes Percent Auto 28.8 % (18.3-44.2); Mean Corpuscular HGB Conc 34.2 g/dl (32-36); Mean Corpuscular Hemoglobin 28.6 pg (26-34); Mean Corpuscular Volume 83.8 fl (80-100); Mean Platelet Volume 9.7 fl (7.4-10.4); Monocytes Absolute Auto 1.2 K/mm3 (0.1-0.6); Monocytes Percent Auto 9.4 % (2.6-8.5); Neutrophils Absolute Auto 7.5 K/mm3 (1.3-6.7); Neutrophils Percent Auto 58.9 % (45.5-73.1); Platelet Count Result 282 k/mm3 (150-375); Red Blood Count 4.68 M/mm3 (4.6-6.20); Red Cell Distribution Width 14.7 % (11.5-14.5); White Blood Count 12.7 K/mm3 (4.5-10.0)
[2020-09-16 21:43] LABS: Anion Gap 5 mmol/L (8-16); Blood Urea Nitrogen 14 mg/dL (9-20); Calcium 8.6 mg/dL (8.4-10.2); Carbon Dioxide 30 mmol/L (22-30); Chloride 103 mmol/L (98-107); Estimated CRCL calculation 110 ml/min; Estimated Glomerular Filt Rate > 60; Glucose 93 mg/dL (75-110); Sodium 138 mmol/L (137-145)
[2020-09-16 22:10] LABS: Potassium 3.4 mmol/L (3.4-5.0)
[2020-09-16] MEDS: cefTRIAXone 250 MG VIAL 500 MG IM (22:43)
--- NOTE | 2020-09-16 22:54 | PC.NURSE ---
Lidocaine used for Rocephin reconstitution.
== END 2020-09-16 22:56 | disposition home or self-care (01) ==
PROVIDERS: Physician Assistant; Emergency Provider Emergency Medicine
DX: N39.0 Urinary tract infection, site not specified (principal); F17.290 Nicotine dependence, other tobacco product, uncomplicated
CPT/HCPCS: 36415; 80048; 81001; 85025; 87491; 87591; 87661; 96372; 99283; J0696

== ENCOUNTER 2020-11-29 18:44 | Emergency (ER) | payer OTHER, SELFPAY ==
[2020-11-29 18:54] VITALS: BP 90/50; PULSE 77; RESP 18; TEMP 37; O2SAT 98
--- NOTE | 2020-11-29 19:22 | PC.NURSE ---
Patient's significant other reports that patient has frequent UTI's and that his symptoms are similar to previous UTI's. Also states that last time he had UTI it progressed rapidly and he required admission to hospital for treatment.
[2020-11-29 19:40] LABS: Add Urine Microscopic? YES; Appearance Urine Cloudy (Clear); Bacteria Urine Trace /hpf; Bilirubin Urine Negative (Negative); Blood Urine Negative (Negative); Color Urine Yellow (Yellow); Glucose Urine UA Negative (Negative); Ketones Urine Negative (Negative); Leukocyte Esterase Ur Trace LEU/UL (Negative); Mucus Urine Moderate /lpf; Nitrate Urine Negative (Negative); Protein Urine 1+ mg/dL (Negative); RBC Urine 0-2 /hpf (0-2); Specific Grav Ur 1.029 (1.001-1.035); Squamous Epithelial Cell Urine Few /hpf (Few); Urobilinogen Urine Negative mg/dL (<2.0)
[2020-11-29] MEDS: SODIUM CHLORIDE 0.9% IV 1,000 ML 999 ML IV CONT (19:56)
[2020-11-29 19:59] VITALS: BP 100/60; PULSE 66; RESP 18; TEMP 36.4; O2SAT 99
[2020-11-29 20:05] LABS: Basophils Percent Auto 0.4 % (0.2-1.2); Eosinophils Absolute Auto 0.2 K/mm3 (0-0.3); Eosinophils Percent Auto 1.5 % (0-4.4); Hematocrit 45.3 % (42.0-52.0); Hemoglobin 15.2 g/dL (14.0-18.0); Immature Granulocyte Absolute 0.04 K/mm3 (0.00-0.031); Immature Granulocyte Percent A 0.4 % (0-0.5); Lymphocytes Absolute Auto 2.65 K/mm3 (0.9-3.2); Lymphocytes Percent Auto 24.9 % (18.3-44.2); Mean Corpuscular HGB Conc 33.6 g/dl (32-36); Mean Corpuscular Hemoglobin 28.5 pg (26-34); Mean Platelet Volume 9.7 fl (7.4-10.4); Monocytes Absolute Auto 1.2 K/mm3 (0.1-0.6); Monocytes Percent Auto 11.4 % (2.6-8.5); Neutrophils Absolute Auto 6.6 K/mm3 (1.3-6.7); Neutrophils Percent Auto 61.4 % (45.5-73.1); Platelet Count Result 270 k/mm3 (150-375); Red Blood Count 5.33 M/mm3 (4.6-6.20); Red Cell Distribution Width 14.4 % (11.5-14.5); White Blood Count 10.7 K/mm3 (4.5-10.0)
[2020-11-29 20:17] LABS: Lactic Acid Reflex 0.7 mmol/L (0.7-2.1)
[2020-11-29 20:18] LABS: Alanine Aminotransferase 18 U/L (4-50); Alkaline Phosphatase 60 U/L (38-126); Anion Gap 1 mmol/L (8-16); Aspartate Amino Transferase 29 U/L (17-59); Bilirubin,Total 0.3 mg/dL (0.2-1.3); Blood Urea Nitrogen 12 mg/dL (9-20); Calcium 8.8 mg/dL (8.4-10.2); Carbon Dioxide 32 mmol/L (22-30); Chloride 105 mmol/L (98-107); Estimated CRCL calculation 110 ml/min; Estimated Glomerular Filt Rate > 60; Glucose 98 mg/dL (75-110); Potassium 3.3 mmol/L (3.4-5.0); Sodium 138 mmol/L (137-145)
--- NOTE | 2020-11-29 20:31 | ED.GENADULT ---
HPI - General Adult General Chief complaint: Fever Stated complaint: fever 100.4, sweating at night Time Seen by Provider: 11/29/20 19:21 History of Present Illness HPI narrative: Patient is a 45-year-old gentleman who presents the emergency department with chief complaint of dark-colored urine fever and chills. Patient states that he has had some night sweats has had some body aches and has had a fever at home. Patient states that he has had a previous kidney infection and was treated with antibiotics and required admission in the past. Patient states that afterwards he had another urinary infection and reports that now he is noticed that his urine has become darker and has had sweats at night where he soaks the bed. Patient denies history of IV drug use does report that he has history of a heart murmur. Patient states that he currently just feels rundown and has some body aches. Related Data Home Medications Medication Instructions Recorded Confirmed atorvastatin 11/29/20 ergocalciferol (vitamin D2) 11/29/20 escitalopram oxalate mg 11/29/20 fenofibrate micronized mg 11/29/20 Allergies Allergy/AdvReac Type Severity Reaction Status Date / Time No Known Allergies Allergy Verified 11/29/20 18:58 Review of Systems Review of Systems: Narrative: A 10 system review of systems was completed on the patient and is negative except for what is stated in the HPI. Nursing and ancillary documentation was reviewed. [facility] Family History Family History Mother Hypertension Colon cancer Social History Social History Smoking status: Current every day smoker Tobacco type: cigars Additional smoking assessment comments: 3 CIGARS A DAY Alcohol intake: current Drinks per week: 3 Substance use: current Substance use type: marijuana Gender identity (if verbalized by the patient): Male Spiritual care concerns: No Comments History of heart murmur history of urinary tract infection with pyelonephritis Exam Narrative: Exam Narrative: GENERAL: Well-appearing, well-nourished, and in no acute distress. HEAD: Normocephalic, atraumatic. EYES: PERRLA and EOMI. ENT: Nares clear, no rhinorrhea or epistaxis. Mucous membranes moist. NECK: Supple. CHEST: Clear to auscultation. No respiratory distress. HEART: Regular rate and rhythm. No murmur heard. Normal peripheral pulses. ABDOMEN: Soft, nontender, nondistended, normal active bowel sounds. EXTREMITIES: Normal range of motion. No edema. SKIN: Warm, dry, no rash. NEURO: No focal deficits. Alert and oriented x3. PSYCH: Normal mood and affect. Course Vital Signs Vital signs: Vital Signs Temperature 37.0 C 11/29/20 18:54 Pulse Rate 77 11/29/20 18:54 Respiratory Rate 18 11/29/20 18:54 Blood Pressure 90/50 L 11/29/20 18:54 Pulse Oximetry 98 11/29/20 18:54 Temperature 36.4 C L 11/29/20 19:59 Pulse Rate 66 11/29/20 19:59 Respiratory Rate 18 11/29/20 19:59 Blood Pressure 100/60 11/29/20 19:59 Pulse Oximetry 99 11/29/20 19:59 Medical Decision Making Vital Signs Vital Signs: Vital Signs Temperature 37.0 C 11/29/20 18:54 Pulse Rate 77 11/29/20 18:54 Respiratory Rate 18 11/29/20 18:54 Blood Pressure 90/50 L 11/29/20 18:54 Pulse Oximetry 98 11/29/20 18:54 Temperature 36.4 C L 11/29/20 19:59 Pulse Rate 66 11/29/20 19:59 Respiratory Rate 18 11/29/20 19:59 Blood Pressure 100/60 11/29/20 19:59 Pulse Oximetry 99 11/29/20 19:59 Lab Data Result diagrams: 11/29/20 19:53 11/29/20 19:53 Labs: Lab Results 11/29/20 11/29/20 11/29/20 Range/Units 19:24 19:53 19:53 WBC 10.7 H (4.5-10.0) K/mm3 RBC 5.33 (4.6-6.20) M/mm3 Hgb 15.2 (14.0-18.0) g/dL Hct 45.3 (42.0-52.0) % MCV 85.0 (80-100) fl MCH 28.5 (26-34) pg MCH
[2020-11-29 20:51] VITALS: BP 112/71; PULSE 67; RESP 18; TEMP 36.4; O2SAT 96
[2020-11-29 21:45] VITALS: BP 129/84; PULSE 72; RESP 16; O2SAT 95
== END 2020-11-29 21:46 | disposition home or self-care (01) ==
PROVIDERS: Emergency Medicine; Emergency Provider Emergency Medicine; PCP Family Medicine
DX: N39.0 Urinary tract infection, site not specified (principal); F17.290 Nicotine dependence, other tobacco product, uncomplicated
CPT/HCPCS: 36415; 80053; 81001; 83605; 85025; 96361; 96365; 99284; J0696; J7030

== ENCOUNTER 2021-09-01 07:12 | Emergency (ER) | payer OTHER, SELFPAY ==
[2021-09-01 07:20] VITALS: BP 163/89; PULSE 77; RESP 18; TEMP 36.6; O2SAT 98
--- NOTE | 2021-09-01 07:30 | PC.NURSE ---
Pt states that he possibly has an ingrown hair and has experienced this before pt states there is no pain unless it is being touched
--- NOTE | 2021-09-01 07:55 | ED.GENADULT ---
HPI - General Adult General Chief complaint: Skin/Abscess/Foreign Body Stated complaint: Ingrown hair L jaw Time Seen by Provider: 09/01/21 08:08 Source: patient and RN notes reviewed History of Present Illness HPI narrative: Patient is a 46 y/o male complaining of a bump on left jaw. He states that it's been there for 2-3 week. There is no pain. There is no known alleviating or exacerbating factor. He has no fever. He is concerned about ingrown hair. Related Data Home Medications Medication Instructions Recorded Confirmed atorvastatin 11/29/20 ergocalciferol (vitamin D2) 11/29/20 escitalopram oxalate mg 11/29/20 fenofibrate micronized mg 11/29/20 Allergies Allergy/AdvReac Type Severity Reaction Status Date / Time No Known Allergies Allergy Verified 09/01/21 07:23 Review of Systems Review of Systems: All systems reviewed & are unremarkable except as noted in HPI and below Integumentary/Breasts: Skin/Breast: Reports swelling (left jaw) PMFSH Family History Family History Mother Hypertension Colon cancer Social History Social History Smoking status: Current every day smoker Tobacco type: cigars Additional smoking assessment comments: 3 CIGARS A DAY Alcohol intake: current Drinks per week: 3 Substance use: current Substance use type: marijuana Gender identity (if verbalized by the patient): Male Spiritual care concerns: No Exam Const: General: no acute distress and well developed Orientation/consciousness: oriented to person, oriented to place, oriented to time and patient oriented x3 HENMT: Head: normocephalic Ears: external ears normal General nose exam: Normal external nose present Skin: General skin exam: normal color and turgor normal Lesions: other (raised area left jaw, likely ingrown hair, <1cm diameter, non tender) Neuro: General: oriented to person, oriented to place, oriented to time and patient oriented x3 Cognition (Neuro): normal cognition Extrem: General: normal to inspection, full ROM and no pedal edema Psych: Appearance: grossly normal Mental Status: mental status grossly normal Affect: normal affect Course Vital Signs Vital signs: Vital Signs Temperature 36.6 C 09/01/21 07:20 Pulse Rate 77 09/01/21 07:20 Respiratory Rate 18 09/01/21 07:20 Blood Pressure 163/89 H 09/01/21 07:20 Pulse Oximetry 98 09/01/21 07:20 Temperature 36.6 C 09/01/21 07:20 Pulse Rate 88 09/01/21 08:41 Respiratory Rate 13 09/01/21 08:41 Blood Pressure 155/98 H 09/01/21 08:41 Pulse Oximetry 96 09/01/21 08:41 Medical Decision Making Vital Signs Vital Signs: Vital Signs Temperature 36.6 C 09/01/21 07:20 Pulse Rate 77 09/01/21 07:20 Respiratory Rate 18 09/01/21 07:20 Blood Pressure 163/89 H 09/01/21 07:20 Pulse Oximetry 98 09/01/21 07:20 Temperature 36.6 C 09/01/21 07:20 Pulse Rate 88 09/01/21 08:41 Respiratory Rate 13 09/01/21 08:41 Blood Pressure 155/98 H 09/01/21 08:41 Pulse Oximetry 96 09/01/21 08:41 Discharge Plan Discharge Clinical Impression: Ingrown hair Patient Disposition: Home, Self-Care Condition: Stable Instructions: Antibiotic Form Prescriptions: New cephalexin 500 mg capsule 500 mg PO Q8H 7 Days Qty: 21 RF: 0 No Action atorvastatin 20 mg tablet RF: 0 escitalopram oxalate 20 mg tablet RF: 0 fenofibrate micronized 134 mg capsule RF: 0 ergocalciferol (vitamin D2) 1,250 mcg (50,000 unit) capsule RF: 0 cefdinir 300 mg capsule 300 mg PO Q12H Qty: 20 RF: 0 Follow-up/Referrals: William Jorge MD [Primary Care Provider] - 1 Week
--- NOTE | 2021-09-01 08:34 | PC.NURSE ---
Pt educated on diagnosis and is being discharged
[2021-09-01 08:41] VITALS: BP 155/98; PULSE 88; RESP 13; O2SAT 96
== END 2021-09-01 08:42 | disposition home or self-care (01) ==
PROVIDERS: Emergency Provider Emergency Medicine; PCP Family Medicine
DX: L73.1 Pseudofolliculitis barbae (principal); F17.290 Nicotine dependence, other tobacco product, uncomplicated
CPT/HCPCS: 99283

== ENCOUNTER 2021-11-08 19:19 | Emergency (ER) | payer SELFPAY ==
[2021-11-08 19:21] VITALS: BP 131/72; PULSE 88; RESP 14; TEMP 36.8; O2SAT 99
--- NOTE | 2021-11-08 19:43 | ED.SKABFB ---
HPI - Skin/Abscess/Foreign Bdy General Chief complaint: Skin/Abscess/Foreign Body Stated complaint: Jaw pain for a month Time Seen by Provider: 11/08/21 19:27 Source: patient History of Present Illness HPI narrative: Patient presents with swelling on his jaw. He said symptoms for approximately 1 month he was seen previously for this was started on antibiotics and feel the antibiotics helped and his pain is increasing to return to the ER for evaluation. He has had a history of ingrown hairs and feels this is similar to his prior ingrown hair. Denies any fevers or difficulty swallowing denies any shortness of breath. Related Data Home Medications Medication Instructions Recorded Confirmed atorvastatin 11/29/20 ergocalciferol (vitamin D2) 11/29/20 escitalopram oxalate mg 11/29/20 fenofibrate micronized mg 11/29/20 Allergies Allergy/AdvReac Type Severity Reaction Status Date / Time No Known Allergies Allergy Verified 09/01/21 07:23 Review of Systems Review of Systems: CONSTITUTIONAL: Denies fever, chills, or sweats. EYES: Denies visual changes, redness, or discharge. ENT: Denies rhinorrhea, congestion, sore throat, or otalgia. CARDIOVASCULAR: Denies chest pain, palpitations, or edema. RESPIRATORY: Denies cough or dyspnea. GASTROINTESTINAL: Denies abdominal pain, nausea, vomiting, or diarrhea. GENITOURINARY: Denies dysuria or hematuria. SKIN: Denies rash or itching. MUSCULOSKELETAL: Denies back pain, joint pain, or myalgia. NEUROLOGIC: Denies headache, numbness, dizziness, or weakness. PSYCHIATRIC: Denies anxiety or depression. All systems reviewed & are unremarkable except as noted in HPI and below PMFSH Family History Family History Mother Hypertension Colon cancer Social History Social History Smoking status: Current every day smoker Tobacco type: cigars Additional smoking assessment comments: 3 CIGARS A DAY Alcohol intake: current Drinks per week: 3 Substance use: current Substance use type: marijuana Gender identity (if verbalized by the patient): Male Spiritual care concerns: No Exam Narrative: GENERAL: Well-appearing, well-nourished, and in no acute distress. HEAD: Normocephalic, atraumatic. EYES: PERRLA and EOMI. ENT: Nares clear, no rhinorrhea or epistaxis. Mucous membranes moist. NECK: Supple. No masses. No JVD EXTREMITIES: Normal range of motion. No edema. SKIN: Warm, dry, no rash. Soft mobile 1 x 1 cm mass inferior to the left ear on the jaw no open or draining wounds no significant erythema NEURO: No focal deficits. Alert and oriented x3. PSYCH: Normal mood and affect. Course Vital Signs Vital signs: Vital Signs Temperature 36.8 C 11/08/21 19:21 Pulse Rate 88 11/08/21 19:21 Respiratory Rate 14 11/08/21 19:21 Blood Pressure 131/72 11/08/21 19:21 Pulse Oximetry 99 11/08/21 19:21 Temperature 36.8 C 11/08/21 19:21 Pulse Rate 88 11/08/21 19:21 Respiratory Rate 14 11/08/21 19:21 Blood Pressure 131/72 11/08/21 19:21 Pulse Oximetry 99 11/08/21 19:21 Procedures Abscess I/D face: Date of Incision: 11/08/21 Time of Incision: 20:15 Side (if applicable): left Local Anesthetic: lidocaine 1% and with epi Amount of anesthesia used (mL): 2 Technique: incised with #11 blade Amount of fluid expressed (mL): 1 Irrigation: Yes Packing used?: none I&D Results: Pus and Blood MDM - Skin/Abscess/Foreign Bdy MDM Narrative Medical decision making narrative: H&P as above, vss, pt looks clinically well, exam with soft tender mobile mass, ultrasound utilized to confirm fluid collection on the face, additional labs/img considered, symptomatic relief available as needed, patient was treated with an I&D on reevaluation pt continues to looks clinically well, reports feeling much imp
[2021-11-08] MEDS: LIDO 1%/EPINEPHRINE 1:100,000 20 ML VIAL (19:53)
== END 2021-11-08 20:58 | disposition home or self-care (01) ==
PROVIDERS: Emergency Provider Emergency Medicine; PCP Family Medicine
DX: L02.01 Cutaneous abscess of face (principal); F17.290 Nicotine dependence, other tobacco product, uncomplicated
CPT/HCPCS: 10060; 99283